=== PATIENT | female | born 1945 | race Caucasian/White ===

== ENCOUNTER 2021-05-05 13:36 | Emergency (ER) | payer MEDICAID ==
[~2021-05-05] VITALS: Ht 162.6 cm; Wt 63.0 kg
[2021-05-05] MEDS ORDERED: ACETAMINOPHEN 325MG TABLET PO ONE (14:00)
[2021-05-05 14:13] VITALS: BP 93/66
[2021-05-05] MEDS ORDERED: METO-396 MT (14:35)
== END 2021-05-05 14:52 | disposition home or self-care (01) ==
LOC: ER 13:36
DX: I10 Essential (primary) hypertension (principal); R51.9 Headache, unspecified; E78.00 Pure hypercholesterolemia, unspecified; Z98.890 Other specified postprocedural states
CPT/HCPCS: 99283

== ENCOUNTER 2021-12-04 18:40 | Emergency (ER) | payer MEDICARE, MEDICAID ==
[~2021-12-04] VITALS: Ht 160 cm; Wt 55.0 kg
[~2021-12-04 18:40] MED LIST: METO-396 MT
[2021-12-04] MEDS ORDERED: AMLODIPINE 5MG TABLET PO ONE (20:30)
[2021-12-04] MEDS ORDERED: AMLO5TAB4 MT (22:09)
[2021-12-04 22:19] VITALS: BP 170/94
== END 2021-12-04 22:20 | disposition home or self-care (01) ==
LOC: ER 18:40
DX: I10 Essential (primary) hypertension (principal); E78.00 Pure hypercholesterolemia, unspecified
CPT/HCPCS: 99283

== ENCOUNTER 2023-07-26 09:48 | Emergency (ER) | payer MEDICARE, MEDICAID ==
[~2023-07-26] VITALS: Ht 170.2 cm; Wt 72.0 kg
[~2023-07-26 09:48] MED LIST changes: +AMLO5TAB4 MT
[2023-07-26 09:53] VITALS: O2SAT 96
[2023-07-26] MEDS ORDERED: FLUORESCEIN SODIUM 1MG/STRIP LEFTEYE ONE (10:00)
[2023-07-26] MEDS ORDERED: TETRACAINE 0.5% OPHTH DROPS 4ML LEFTEYE ONE (10:00)
[2023-07-26] MEDS ORDERED: TIMOLOL MALEATE 0.5% OPHTH DROPS 5ML LEFTEYE STA (10:44)
[2023-07-26] MEDS ORDERED: ACETAZOLAMIDE SODIUM 500MG/VIAL IV ONE (10:45)
[2023-07-26] MEDS ORDERED: ACETAZOLAMIDE 500MG ER CAPSULE PO ONE (11:15)
[2023-07-26] MEDS ORDERED: ACET250T26 PO (11:17)
[2023-07-26] MEDS ORDERED: LATA2.5D14 EACHEYE (11:17)
[2023-07-26] MEDS ORDERED: PRED5DRO22 LEFTEYE (11:17)
[2023-07-26] MEDS ORDERED: TETRACAINE 0.5% OPHTH DROPS 4ML EACHEYE ONE (12:00)
[2023-07-26] MEDS ORDERED: TIMOLOL MALEATE 0.5% OPHTH DROPS 5ML LEFTEYE SCH (12:00)
[2023-07-26] MEDS ORDERED: ciprofloxacin LEFTEYE (12:27)
[2023-07-26] MEDS ORDERED: ACETAMINOPHEN 325MG TABLET PO ONE (12:45)
[2023-07-26 14:44] VITALS: BP 145/92; PULSE 86; RESP 18; TEMP 98.2
== END 2023-07-26 14:49 ==
LOC: ER 09:48
DX: H40.212 Acute angle-closure glaucoma, left eye (principal); I10 Essential (primary) hypertension; E78.00 Pure hypercholesterolemia, unspecified; Z98.890 Other specified postprocedural states
CPT/HCPCS: 99284; Z7610 ×2; J1120

== ENCOUNTER 2024-10-30 08:28 | Inpatient (IN) | payer OTHER, MEDICAID ==
[~2024-10-30] VITALS: Ht 167.6 cm; Wt 58.1 kg
[~2024-10-30 08:28] MED LIST changes: +ACET250T26 PO; -AMLO5TAB4 MT; +AMLO5TAB5 MT; +LATA2.5D14 EACHEYE; +PRED5DRO22 LEFTEYE; +ciprofloxacin LEFTEYE
[2024-10-30 09:17] LABS: BASOPHILS % 0.4 % (0.0-2.0); EOSINOPHILS % 1.4 % (0.0-5.0); HEMATOCRIT. 37.8 % (36.0-48.0); HEMOGLOBIN. 12.3 g/dL (12.0-16.0); LYMPHOCYTES % 16.1 % (20.0-50.0); MEAN CORPUSCULAR HEMOGLOBIN 29.1 pg (28.0-32.0); MEAN CORPUSCULAR HGB CONC 32.5 g/dL (31.0-37.0); MEAN CORPUSCULAR VOLUME 89.5 fL (81.0-99.0); MEAN PLATELET VOLUME 8.7 fl (7.4-10.4); NEUTROPHILS % 74.1 % (40.0-76.0); PLATELET 194 x1000/uL (130-400); RED BLOOD CELL COUNT 4.23 mill/uL (4.2-5.4); RED CELL DISTRIBUTION WIDTH 14.4 % (11.6-14.6); WHITE BLOOD COUNT 8.1 x1000/uL (4.5-11.0)
[2024-10-30 09:29] LABS: CHLORIDE 101 mEq/L (98-107); SODIUM 137 mEq/L (136-145)
[2024-10-30 09:31] LABS: CALCIUM 8.6 mg/dL (8.7-10.4); CARBON DIOXIDE 26 mEq/L (21-32)
[2024-10-30 09:36] LABS: CREATININE 0.5 mg/dL (0.6-1.0); GLUCOSE 146 mg/dL (70-105); UREA NITROGEN BLOOD 11 mg/dL (9-23)
[2024-10-30] MEDS: SODIUM CHLORIDE 0.9% 500 ML IV ONE (09:55)
[2024-10-30 10:12] LABS: TROPONIN I HIGH SENSITIVITY < 4 ng/L (3.0-34)
[2024-10-30] MEDS ORDERED: MAGNESIUM/ALUMINUM HYDROXIDE/SIMETHICONE 30ML UDC PO PRN (12:30)
[2024-10-30] MEDS ORDERED: IPRATROPIUM/ALBUTEROL 0.5-3(2.5)MG/3ML NEB NEB PRN (12:30)
[2024-10-30] MEDS ORDERED: ACETAMINOPHEN 325MG TABLET PO PRN (12:30)
[2024-10-30] MEDS ORDERED: CLONIDINE 0.1MG TABLET PO PRN (12:30)
[2024-10-30] MEDS ORDERED: ONDANSETRON HCL 4MG/2ML INJ IV PRN (12:30)
[2024-10-30] MEDS ORDERED: ZOLPIDEM TARTRATE 5MG TABLET PO PRN (12:30)
[2024-10-30] MEDS: SODIUM CHLORIDE 0.9% 1,000 ML IV SCH (12:56)
[2024-10-30] MEDS: ENOXAPARIN 40MG/0.4ML SYR SUBCUT SCH (12:59)
[2024-10-30] MEDS ORDERED: NALOXONE HCL 0.4MG/ML VIAL IV PRN (13:00)
[2024-10-30 19:01] VITALS: BP 130/75; PULSE 80; RESP 16; TEMP 36.9; O2SAT 95
[2024-10-30 20:00] VITALS: BP_SYST 130; BP_DIAS 75; BP_DIAS 91; PULSE 80; PULSE 88; RESP 16; RESP 17; TEMP 36.6; TEMP 36.8; O2SAT 96
[2024-10-30] MEDS: HYDROCODONE/ACETAMINOPHEN 5/325MG TABLET PO PRN (21:39)
[2024-10-30 22:31] LABS: TROPONIN I HIGH SENSITIVITY 5 ng/L (3.0-34)
[2024-10-31] VITALS: BP 111/73; PULSE 101; RESP 19; TEMP 37.1; O2SAT 94
[2024-10-31 00:04] LABS: TROPONIN I HIGH SENSITIVITY 5 ng/L (3.0-34)
[2024-10-31] MEDS: POTASSIUM CHLORIDE 20MEQ TABLET SR PO NR (00:25)
[2024-10-31] MEDS: PREDNISOLONE ACETATE 1% OPHTH DROPS 5ML LEFTEYE SCH (00:26)
[2024-10-31] MEDS: POLYETHYLENE GLYCOL 3350 (17GM) 1 DOSE PACK PO SCH (00:26)
[2024-10-31] MEDS: SENNOSIDES/DOCUSATE SOD 8.6/50MG TABLET PO PRN (02:02)
[2024-10-31 04:00] VITALS: BP 125/81; PULSE 82; RESP 16; TEMP 36.8; O2SAT 96
[2024-10-31 07:00] LABS: BASOPHILS % 0.5 % (0.0-2.0); HEMATOCRIT. 36.5 % (36.0-48.0); HEMOGLOBIN. 12.3 g/dL (12.0-16.0); LYMPHOCYTES % 22.4 % (20.0-50.0); MEAN CORPUSCULAR HEMOGLOBIN 29.3 pg (28.0-32.0); MEAN CORPUSCULAR HGB CONC 33.7 g/dL (31.0-37.0); MEAN CORPUSCULAR VOLUME 87.1 fL (81.0-99.0); MEAN PLATELET VOLUME 9.6 fl (7.4-10.4); MONOCYTES % 8.1 % (2.0-8.0); PLATELET 193 x1000/uL (130-400); RED BLOOD CELL COUNT 4.19 mill/uL (4.2-5.4); WHITE BLOOD COUNT 7.6 x1000/uL (4.5-11.0)
[2024-10-31 07:25] LABS: CARBON DIOXIDE 26 mEq/L (21-32); CHLORIDE 101 mEq/L (98-107); POTASSIUM 3.5 mEq/L (3.5-5.1); SODIUM 136 mEq/L (136-145)
[2024-10-31 07:26] LABS: CALCIUM 8.7 mg/dL (8.7-10.4)
[2024-10-31 07:31] LABS: CREATININE 0.4 mg/dL (0.6-1.0); GLUCOSE 82 mg/dL (70-105); UREA NITROGEN BLOOD 13 mg/dL (9-23)
[2024-10-31 08:00] VITALS: BP 117/73; PULSE 86; RESP 20; TEMP 36.6; O2SAT 99
[2024-10-31] MEDS: PANTOPRAZOLE SODIUM 40 MG/VIAL IV SCH (09:18)
[2024-10-31] MEDS: METOPROLOL SUCCINATE 50MG ER TABLET PO SCH (09:19)
[2024-10-31] MEDS: AMLODIPINE 5MG TABLET PO SCH (09:19)
[2024-10-31 12:00] VITALS: BP 120/70; PULSE 84; RESP 18; TEMP 36.7; O2SAT 99
[2024-10-31 16:00] VITALS: BP 119/71; PULSE 80; RESP 19; TEMP 36.7; O2SAT 99
[2024-10-31 20:00] VITALS: BP 129/82; PULSE 82; RESP 16; TEMP 36.7; O2SAT 96
[2024-10-31] MEDS: LATANOPROST 0.005% OPHTH DROPS 2.5ML EACHEYE SCH (22:01)
[2024-11-01] VITALS: BP 144/77; PULSE 68; RESP 16; TEMP 36.4; O2SAT 96
[2024-11-01 04:00] VITALS: BP 141/88; PULSE 83; RESP 16; TEMP 37.2; O2SAT 95
[2024-11-01 07:53] LABS: BASOPHILS % 0.4 % (0.0-2.0); EOSINOPHILS % 1.9 % (0.0-5.0); HEMATOCRIT. 35.5 % (36.0-48.0); HEMOGLOBIN. 11.9 g/dL (12.0-16.0); LYMPHOCYTES % 17.7 % (20.0-50.0); MEAN CORPUSCULAR HGB CONC 33.4 g/dL (31.0-37.0); MEAN CORPUSCULAR VOLUME 86.7 fL (81.0-99.0); MEAN PLATELET VOLUME 9.1 fl (7.4-10.4); MONOCYTES % 9.4 % (2.0-8.0); NEUTROPHILS % 70.6 % (40.0-76.0); PLATELET 190 x1000/uL (130-400); RED BLOOD CELL COUNT 4.09 mill/uL (4.2-5.4); WHITE BLOOD COUNT 8.3 x1000/uL (4.5-11.0)
[2024-11-01 08:00] VITALS: BP 121/72; PULSE 82; RESP 18; TEMP 36.7; O2SAT 99
[2024-11-01 08:24] LABS: CARBON DIOXIDE 28 mEq/L (21-32); CHLORIDE 100 mEq/L (98-107); POTASSIUM 3.4 mEq/L (3.5-5.1); SODIUM 136 mEq/L (136-145)
[2024-11-01 08:25] LABS: CALCIUM 8.8 mg/dL (8.7-10.4)
[2024-11-01 08:30] LABS: CREATININE 0.4 mg/dL (0.6-1.0); GLUCOSE 88 mg/dL (70-105); UREA NITROGEN BLOOD 7 mg/dL (9-23)
[2024-11-01 12:00] VITALS: BP 118/69; PULSE 79; RESP 18; TEMP 36.8; O2SAT 99
[2024-11-01 16:00] VITALS: BP 124/71; PULSE 75; RESP 19; TEMP 36.8; O2SAT 99
[2024-11-01 20:00] VITALS: BP 102/68; PULSE 97; RESP 19; TEMP 36.3; O2SAT 97
[2024-11-02] VITALS: BP 150/88; PULSE 78; RESP 19; TEMP 36.5; O2SAT 98
[2024-11-02 04:00] VITALS: BP 145/74; PULSE 78; RESP 19; TEMP 36.3; O2SAT 100
[2024-11-02 07:38] VITALS: BP 127/85; PULSE 72; TEMP 98; O2SAT 97
[2024-11-02 08:00] VITALS: BP 127/85; PULSE 97; RESP 20; TEMP 36.4; O2SAT 95
[2024-11-02 08:48] VITALS: PULSE 97
== END 2024-11-02 09:30 | disposition home or self-care (01) | DRG 563 ==
LOC: ER 08:28 → EDBEDREQTM 11:13 → EDBEDREQ 11:13 → EDBEDREQSVC 17:08 → 8EST 18:40
PROVIDERS: ADMIT Internal Medicine; ATTEND Internal Medicine
DX: S42.001A Fracture of unspecified part of right clavicle, initial encounter for closed fracture (principal); I10 Essential (primary) hypertension; E11.36 Type 2 diabetes mellitus with diabetic cataract; E87.6 Hypokalemia; M19.011 Primary osteoarthritis, right shoulder; E78.5 Hyperlipidemia, unspecified; H40.9 Unspecified glaucoma; Z79.899 Other long term (current) drug therapy; W18.30XA Fall on same level, unspecified, initial encounter; Y93.89 Activity, other specified; Y92.89 Other specified places as the place of occurrence of the external cause; Y99.8 Other external cause status
CPT/HCPCS: 36415; 71045; 73030; 80048; 82962; 83880; 84484; 85025; 93880; 93970; 97162; 97165; 99285; J1650; J2470; J7030